=== PATIENT | male | born 1985 | race Caucasian/White ===

== ENCOUNTER 2020-07-11 23:08 | Emergency (ER) | payer MEDICAID ==
[~2020-07-11] VITALS: Ht 193 cm; Wt 95.5 kg
[2020-07-11 23:11] VITALS: BP 135/86
[2020-07-11] MEDS ORDERED: metroNIDAZOLE 500mg tablet PO ONE (23:45)
[2020-07-11] MEDS ORDERED: azithromycin 250mg tablet PO ONE (23:45)
[2020-07-11] MEDS ORDERED: CefTRIAXone 250MG IM Kit w/LIDOcaine IM ONE (23:45)
--- NOTE | 2020-07-11 23:45 | NUR ---
WENT TO BEDSIDE TO GIVE PATIENT HIS MEDICATION . PT NOT IN ROOM REGISTRATION REPORTS PT LEFT FACILITY . WENT TO LOBBY AND PARKING LOT TO LOOK FOR PATIENT . PT NOT TO BE FOUND . PT GIRLFRIEND AT FACILITY ASKED TO CALL HIM . SHE PHONED AND REPORTED " HE IS NOT COMING back he doesnt want o be here he does not want the medicine he is not coming in "
[2020-07-11 23:56] LABS: CLARITY,URINE CLEAR (Clear); COLOR,URINE YELLOW (Yellow); GLUCOSE, URINE NEGATIVE (Neg); KETONES,URINE NEGATIVE (Neg); LEUKOCYTE ESTERASE ,URINE NEGATIVE (Neg); NITRITES, URINE NEGATIVE (Neg); OCCULT BLOOD,URINE NEGATIVE (Neg); PROTEIN,URINE NEGATIVE (Neg); UROBILINOGEN,URINE 0.2 E.U/dL (0.2-1.0)
[2020-07-11 23:57] LABS: UA COLLECTION TYPE VOIDED
--- NOTE | 2020-07-12 | NUR ---
and charge nurse aware ajit grewal
--- NOTE | 2020-07-12 00:20 | NUR ---
pt came back to the er . so he is being put back into room 15
--- NOTE | 2020-07-12 00:24 | NUR ---
CONTACTED PHARMACY TO HAVE THE INACTIVE ABX ORDERS BE ACTIVE PATIENT HAS RETURNED BACK TO ROOM . MD AWARE PT HAS RETURNED . PT EDUCATED THAT HE NEEDS TO STAY TILL HE RECIEVES HIS MEDICATION AND DISCHARGE INSTRUCTIONS PT VERBALIZED HE WILL COMPLETE TREATMENT AT THIS TIME
[2020-07-12] MEDS ORDERED: metroNIDAZOLE 500mg tablet PO ONE (00:30)
[2020-07-12] MEDS ORDERED: azithromycin 250mg tablet PO ONE (00:30)
[2020-07-12] MEDS ORDERED: CefTRIAXone 250MG IM Kit w/LIDOcaine IM ONE (00:30)
--- NOTE | 2020-07-12 00:47 | NUR ---
MEDICATED PATIENT FOR TREATMENT STD
== END 2020-07-12 00:49 | disposition home or self-care (01) ==
LOC: ER 23:09
DX: Z11.3 Encounter for screening for infections with a predominantly sexual mode of transmission (principal)
CPT/HCPCS: 36415; 81003; 87491; 87591; 96372; 99283; J0696; J3490